=== PATIENT | female | born 1955 | race Caucasian/White ===

== ENCOUNTER 2017-12-27 02:55 | Emergency (ER) | payer BC ==
[2017-12-27] MEDS: MORPHINE 4 MG/ML 1ML VIAL (J2270) IV (04:11)
[2017-12-27] MEDS: NS 1,000 ML IV (04:11)
[2017-12-27] MEDS: ONDANSETRON 4MG/2ML VIAL (J2405) IV (04:11)
[2017-12-27 04:14] LABS: BASO # 0.1 10^3/uL (0.0-0.2); BASO % 0.5 % (0.0-1.0); EOS # 0.1 10^3/uL (0.0-0.50); EOS % 0.5 % (0.0-3.0); HEMATOCRIT 41.9 % (36.0-47.0); IMMATURE GRANULOCYTE % 0.5 % (0-3.0); LYMPH % 12.8 % (24.0-44.0); MEAN CORPUSCULAR HEMOGLOBIN 31.1 pg (27.0-33.0); MEAN CORPUSCULAR HGB CONC 33.4 g/dl (32.0-36.5); MEAN CORPUSCULAR VOLUME 93.1 fl (80.0-96.0); MONO # 0.6 10^3/uL (0.0-0.8); MONO % 3.6 % (0.0-5.0); NEUTROPHILS # 12.7 10^3/uL (1.8-7.7); NEUTROPHILS % 82.1 % (36.0-66.0); PLATELET COUNT, AUTOMATED 248 10^3/uL (150-450); RED CELL DISTRIBUTION WIDTH 12.8 % (11.5-14.5); WHITE BLOOD COUNT 15.4 10^3/uL (4.0-10.0)
[2017-12-27 04:28] LABS: ALBUMIN/GLOBULIN RATIO 1.05 (1.00-1.93); ALKALINE PHOSPHATASE 72 U/L (45-117); ALT/SGPT 23 U/L (12-78); ANION GAP 7 MEQ/L (8-16); AST/SGOT 11 U/L (7-37); BILIRUBIN,DIRECT < 0.1 MG/DL (0.0-0.2); BILIRUBIN,TOTAL 0.3 MG/DL (0.2-1.0); BLOOD UREA NITROGEN 22 MG/DL (7-18); CALCIUM LEVEL 8.8 MG/DL (8.8-10.2); CARBON DIOXIDE LEVEL 28 MEQ/L (21-32); CHLORIDE LEVEL 107 MEQ/L (98-107); CREATININE FOR GFR 1.01 MG/DL (0.55-1.30); GLOMERULAR FILTRATION RATE 59.1 (>45); GLUCOSE, FASTING 149 MG/DL (70-100); LIPASE 167 U/L (73-393); POTASSIUM SERUM 3.6 MEQ/L (3.5-5.1); SODIUM LEVEL 142 MEQ/L (136-145); TOTAL PROTEIN 7.8 GM/DL (6.4-8.2)
[2017-12-27 04:31] LABS: KETONE, URINE AUTO RFX NEGATIVE (NEGATIVE); MUCUS, URINE RFX SMALL (NEGATIVE); NITRITE, URINE AUTO RFX NEGATIVE (NEGATIVE); RBC, URINE AUTO RFX 2 /HPF (0-3); SPECIFIC GRAVITY UR AUTO RFX 1.023 (1.002-1.035); SQUAM EPITHELIAL CELL UR AURFX 0 /HPF (0-6); WBC, URINE AUTO RFX 2 /HPF (0-3)
[2017-12-27 05:16] LABS: LEUKOCYTE ESTERASE UR AUTO RFX TRACE (NEGATIVE)
[2017-12-27] MEDS ORDERED: ISOVUE-370 76% 100ML VIAL (Q9967) As Ordered (05:26)
[2017-12-27] MEDS ORDERED: HYDROmorphone HCL 1 MG/ML SYRINGE (J1170) IV (05:30)
[2017-12-27] MEDS: KETOROLAC 30 MG/ML VIAL (J1885) IV (06:15)
[2017-12-27] MEDS: METOCLOPRAMIDE INJ 10MG/2ML VIAL (J2765) IV (06:15)
[2017-12-27] MEDS: CIPROFLOXACIN 400 MG in APPROPRIATE DILUENT 1 EA IV (06:15)
[2017-12-27] MEDS: TAMSULOSIN 0.4 MG CAP PO (07:14)
[2017-12-27] MEDS: OXYCODONE/APAP 5MG/325MG(BULK FOR ED) 1 TABLET PO (07:14)
== END 2017-12-27 07:27 | disposition home or self-care (01) ==
LOC: M ED 02:55
DX: N20.1 Calculus of ureter (principal); R91.1 Solitary pulmonary nodule; Z79.899 Other long term (current) drug therapy; Z88.2 Allergy status to sulfonamides; Z88.1 Allergy status to other antibiotic agents
CPT/HCPCS: J2270

== ENCOUNTER → 2017-12-31 | Outpatient (REF) | payer BC ==
[2017-12-31 11:07] LABS: CHOLESTEROL LEVEL 219 MG/DL (<200); CHOLESTEROL RISK RATIO 2.772 (<5); HDL CHOLESTEROL 79 MG/DL (>40); LDL CHOLESTEROL 118.4 MG/DL (<100); NON-HDL-C 140 MG/DL; TRIGLYCERIDES LEVEL 108 MG/DL (<150)
== END ==
LOC: M SFHCPLAZ 08:23
DX: E78.00 Pure hypercholesterolemia, unspecified (principal)
CPT/HCPCS: 80061

== ENCOUNTER → 2018-12-28 | Outpatient (REF) | payer BC ==
[~2018-12-28] MED LIST: CIPR-249 PO; FLOM0.4C39 PO; PERC5TAB12 PO; ZOFR4TAB14 PO
[2018-12-28 14:28] LABS: HEMATOCRIT 42.3 % (36.0-47.0); HEMOGLOBIN 14.1 g/dl (12.0-15.5); MEAN CORPUSCULAR HEMOGLOBIN 30.7 pg (27.0-33.0); MEAN CORPUSCULAR HGB CONC 33.3 g/dl (32.0-36.5); PLATELET COUNT, AUTOMATED 218 10^3/uL (150-450); WHITE BLOOD COUNT 7.3 10^3/uL (4.0-10.0)
[2018-12-28 15:19] LABS: ALBUMIN 4.2 GM/DL (3.2-5.2); ALT/SGPT 28 U/L (12-78); BILIRUBIN,TOTAL 0.9 MG/DL (0.2-1.0); BLOOD UREA NITROGEN 19 MG/DL (7-18); CARBON DIOXIDE LEVEL 28 MEQ/L (21-32); CHLORIDE LEVEL 103 MEQ/L (98-107); CHOLESTEROL LEVEL 247 MG/DL (<200); CREATININE FOR GFR 0.75 MG/DL (0.55-1.30); GLOMERULAR FILTRATION RATE > 60.0 (>45); GLUCOSE, FASTING 94 MG/DL (70-100); HDL CHOLESTEROL 76 MG/DL (>40); LDL CHOLESTEROL 149 MG/DL (<100); NON-HDL-C 171 MG/DL; POTASSIUM SERUM 4.6 MEQ/L (3.5-5.1); SODIUM LEVEL 139 MEQ/L (136-145); THYROID STIMULATING HORMONE 0.993 uIU/ML (0.358-3.740); TOTAL PROTEIN 7.5 GM/DL (6.4-8.2); TRIGLYCERIDES LEVEL 111 MG/DL (<150)
== END ==
LOC: M SFHCSACK 09:08
PROVIDERS: ATTEND Physician Assistant
DX: Z87.442 Personal history of urinary calculi (principal); E78.00 Pure hypercholesterolemia, unspecified

== ENCOUNTER → 2019-09-11 | Outpatient (CLI) | payer BC ==
--- NOTE | 2019-09-11 14:10 | REPMRS ---
Patient History The patient states she has not had a clinical breast exam in over a year. Family history of pancreatic cancer at age 57 in mother, colorectal cancer at age 66 in sister. Took hormonal contraceptives for 4 years. Took unspecified hormones for 6 years. 3D TOMOSYNTHESIS WAS PERFORMED. The [place] lifetime risk for breast cancer is 7.4%. Digital Woman Screen Mammo: September 11, 2019 - Exam #: [id number] Bilateral CC and MLO view(s) were taken. Technologist: Dayan Carrasco, Technologist Prior study comparison: August 24, 2016, digital woman screen mammo performed at [facility]. May 31, 2014, bilateral bilat screen digital mammo, performed at [facility] ([facility]). FINDINGS: The breast tissue is heterogeneously dense. This may lower the sensitivity of mammography. There has been no change in the appearance of the mammogram from the prior studies. There is a moderate amount of residual fibroglandular tissue which is fairly symmetric. There is no interval development of dominant mass, areas of architectural distortion, or clustered microcalcification typical of malignancy. Assessment: BI-RADS/ACR category 1 mammogram. Negative Mammogram. Recommendation Routine screening mammogram in 1 year (for women over age 40). This mammogram was interpreted with the aid of an FDA-approved computer-aided dectection system. Electronically Signed By: Joseph Garcia MD 09/11/19 [id number]
== END ==
LOC: M WHC 11:14
PROVIDERS: ATTEND Internal Medicine
DX: Z12.31 Encounter for screening mammogram for malignant neoplasm of breast (principal); Z80.0 Family history of malignant neoplasm of digestive organs

== ENCOUNTER → 2020-08-30 | Outpatient (CLI) | payer SELFPAY | LOC: M LABSMTC 11:35 | PROVIDERS: ATTEND Pediatrics | DX: Z20.828 Contact with and (suspected) exposure to other viral communicable diseases (principal) ==

== ENCOUNTER → 2021-02-27 | Outpatient (REF) | payer BC, MEDICARE ==
[2021-02-27 11:19] LABS: HEMATOCRIT 44.3 % (36.0-47.0); HEMOGLOBIN 14.3 g/dl (12.0-15.5); MEAN CORPUSCULAR HEMOGLOBIN 30.8 pg (27.0-33.0); MEAN CORPUSCULAR HGB CONC 32.3 g/dl (32.0-36.5); MEAN CORPUSCULAR VOLUME 95.5 fl (80.0-96.0); PLATELET COUNT, AUTOMATED 231 10^3/uL (150-450); RED BLOOD COUNT 4.64 10^6/uL (4.00-5.40); WHITE BLOOD COUNT 7.1 10^3/uL (4.0-10.0)
[2021-02-27 11:44] LABS: ALBUMIN 4.1 GM/DL (3.2-5.2); ALT/SGPT 24 U/L (12-78); BILIRUBIN,TOTAL 0.6 MG/DL (0.2-1.0); BLOOD UREA NITROGEN 19 MG/DL (7-18); CALCIUM LEVEL 9.2 MG/DL (8.8-10.2); CARBON DIOXIDE LEVEL 29 MEQ/L (21-32); CHLORIDE LEVEL 108 MEQ/L (98-107); CHOLESTEROL LEVEL 258 MG/DL (<200); CREATININE FOR GFR 0.73 MG/DL (0.55-1.30); GLOMERULAR FILTRATION RATE > 60.0 (>45); GLUCOSE, FASTING 100 MG/DL (70-100); HDL CHOLESTEROL 77 MG/DL (>40); LDL CHOLESTEROL 158 MG/DL (<100); NON-HDL-C 181 MG/DL; POTASSIUM SERUM 4.6 MEQ/L (3.5-5.1); SODIUM LEVEL 140 MEQ/L (136-145); TRIGLYCERIDES LEVEL 113 MG/DL (<150)
[2021-02-27 12:31] LABS: HEPATITIS C VIRUS ABY INDEX < 0.0 INDEX (<0.8)
== END ==
LOC: M PLALAB 08:08
PROVIDERS: ATTEND Internal Medicine
DX: E78.00 Pure hypercholesterolemia, unspecified (principal); Z11.59 Encounter for screening for other viral diseases; Z80.0 Family history of malignant neoplasm of digestive organs

== ENCOUNTER → 2021-09-23 | Outpatient (CLI) | payer BC, MEDICARE ==
--- NOTE | 2021-09-23 15:09 | DEXAMM ---
INDICATION: SCREEN OSTEO. COMPARISON: 07/26/2008. TECHNIQUE: Bone density was measured using dual-energy x-ray absorptiometry (DEXA). FINDINGS: AP SPINE L1-L4 BMD 1.210 g/cm2 Young Adult T-Score 12.1 Age Matched Z-Score 1.7. LT FEMUR, TOTAL BMD 1.190 g/cm2 Young Adult T-Score 1.4 Age Matched Z-Score 2.7. LT NECK BMD 1.063 g/cm2 Young Adult T-Score 0.2 Age Matched Z-Score 1.7. RT FEMUR, TOTAL BMD 1.252 g/cm2 Young Adult T-Score 1.9 Age Matched Z-Score 3.2. RT NECK BMD 1.157 g/cm2 Young Adult T-Score 0.9 Age Matched Z-Score 2.4. IMPRESSION: There is normal bone density of the spine. There is normal bone density of the left hip. There is normal bone density of the right hip. The density of the spine has decreased 4.0% since the initial exam on 07/26/2008. The density of the left hip has increased 2.6% since initial exam on 07/26/2008. The density of the right hip has increased 2.8% since the initial exam on 07/26/2008. FOLLOW-UP: Recommendation for the next bone density exam: 5 years. <Electronically signed by Joseph Garcia > 09/23/21 [id number]
--- NOTE | 2021-09-23 15:34 | REPMRS ---
Patient History The patient states she has not had a clinical breast exam in over a year. Family history of pancreatic cancer at age 57 in mother, colorectal cancer at age 66 in sister. Took hormonal contraceptives for 4 years. Took unspecified hormones for 6 years. Patient states no breast complaints today. Patient has signed MRS History Sheet. Moderna vaccine 11/04/20, 12/02/20, booster 08/25/21 L arm. Digital Woman Screen Mammo: September 23, 2021 - Exam #: [id number] Bilateral CC and MLO view(s) were taken. Technologist: Chapis Rivera, Technologist Prior study comparison: September 11, 2019, bilateral digital woman screen mammo performed at [facility]. August 24, 2016, digital woman screen mammo performed at [facility]. FINDINGS: There are scattered fibroglandular densities. Screening. Digital screening (2D) mammography was performed bilaterally in the CC and MLO projections. Additionally, breast tomosynthesis (3D mammography) was performed bilaterally in the CC and MLO projections. Todays exam was compared to the prior exam/exams. By history, the patient has no complaints of a palpable breast abnormality or other significant breast complaints. The [place] volumetric breast density category is B, there are scattered areas of fibroglandular densities. The breasts are unchanged in size and shape. There are no will-soft tissue densities or spiculated masses. There is no internal architectural distortion. There are no suspicious will-calcific clusters. Skin thickening or nipple retraction is not present. IMPRESSION: BI-RADS Category 2- Benign Findings. There is no evidence of malignant alteration of the breasts. Followup examination recommended in one year. This mammogram was read [facility] assistance [facility],an FDA approved computer aided detection system for mammography. The lifetime Tyrer-Cuzick score is 6.8% Negative x-ray reports should not delay surgical consultation if a dominant or clinically suspicious mass is present. Not all breast cancers can be identified by mammography. Therefore, we recommend that you continue to perform regular breast self-examination and physical examination and then promptly contact your physician of any concerns or changes. Adenosis and dense breasts may obscure an underlying neoplasm. No significant changes when compared with prior studies. Assessment: BI-RADS/ACR category 2 mammogram. Benign Findings. Recommendation Routine screening mammogram of both breasts in 1 year. Electronically Signed By: Devin Henderson MD 09/23/21 [id number]
== END ==
LOC: M WHC 12:39
PROVIDERS: ATTEND Internal Medicine
DX: Z12.31 Encounter for screening mammogram for malignant neoplasm of breast (principal); Z13.820 Encounter for screening for osteoporosis; Z80.0 Family history of malignant neoplasm of digestive organs; M85.89 Other specified disorders of bone density and structure, multiple sites

== ENCOUNTER → 2022-03-04 | Outpatient (CLI) | payer BC ==
[2022-03-04 11:00] LABS: BASO # 0.1 10^3/uL (0.0-0.2); BASO % 0.8 % (0.0-1.0); EOS # 0.1 10^3/uL (0.0-0.5); EOS % 2.3 % (0.0-3.0); HEMATOCRIT 43.7 % (36.0-47.0); HEMOGLOBIN 14.3 g/dl (12.0-15.5); LYMPH # 2.1 10^3/uL (1.5-5.0); LYMPH % 35.5 % (24.0-44.0); MEAN CORPUSCULAR HEMOGLOBIN 30.9 pg (27.0-33.0); MEAN CORPUSCULAR HGB CONC 32.7 g/dl (32.0-36.5); MEAN CORPUSCULAR VOLUME 94.4 fl (80.0-96.0); MONO # 0.5 10^3/uL (0.0-0.8); MONO % 7.7 % (2.0-8.0); NEUTROPHILS # 3.2 10^3/uL (1.5-8.5); NEUTROPHILS % 53.5 % (36.0-66.0); PLATELET COUNT, AUTOMATED 236 10^3/uL (150-450); RED BLOOD COUNT 4.63 10^6/uL (4.00-5.40)
[2022-03-04 11:34] LABS: ALBUMIN 3.8 GM/DL (3.2-5.2); ALT/SGPT 22 U/L (12-78); BILIRUBIN,TOTAL 0.6 MG/DL (0.2-1.0); BLOOD UREA NITROGEN 17 MG/DL (7-18); CALCIUM LEVEL 9.4 MG/DL (8.8-10.2); CARBON DIOXIDE LEVEL 30 MEQ/L (21-32); CHLORIDE LEVEL 106 MEQ/L (98-107); CHOLESTEROL LEVEL 245 MG/DL (<200); CHOLESTEROL RISK RATIO 3.266 (<5); CREATININE FOR GFR 0.77 MG/DL (0.55-1.30); GLOMERULAR FILTRATION RATE > 60.0 (>45); GLUCOSE, FASTING 96 MG/DL (70-100); HDL CHOLESTEROL 75 MG/DL (>40); LDL CHOLESTEROL 151 MG/DL (<100); MAGNESIUM LEVEL 2.6 MG/DL (1.8-2.4); NON-HDL-C 170 MG/DL; POTASSIUM SERUM 4.1 MEQ/L (3.5-5.1); SODIUM LEVEL 141 MEQ/L (136-145); TRIGLYCERIDES LEVEL 96 MG/DL (<150)
== END ==
LOC: M PLALAB 08:31
PROVIDERS: ATTEND Internal Medicine
DX: E78.00 Pure hypercholesterolemia, unspecified (principal); Z80.0 Family history of malignant neoplasm of digestive organs

== ENCOUNTER → 2025-06-15 | Outpatient (CLI) | payer MEDICARE ==
[~2025-06-15] MED LIST changes: -FLOM0.4C39 PO; +TAMS-18 PO
== END ==
LOC: M WHC 08:39
PROVIDERS: ATTEND Family Medicine
DX: Z12.31 Encounter for screening mammogram for malignant neoplasm of breast (principal); Z13.820 Encounter for screening for osteoporosis

== ENCOUNTER → 2025-07-10 | Outpatient (CLI) | payer MEDICARE | LOC: M PLAIMG 09:29 | PROVIDERS: ATTEND Family Medicine | DX: R91.1 Solitary pulmonary nodule (principal) ==

== ENCOUNTER → 2025-07-10 | Outpatient (CLI) | payer MEDICARE | LOC: M WHC 09:32 | PROVIDERS: ATTEND Family Medicine | DX: Z13.820 Encounter for screening for osteoporosis (principal); Z12.31 Encounter for screening mammogram for malignant neoplasm of breast; R92.323 Mammographic fibroglandular density, bilateral breasts ==